=== PATIENT | female | born 1960 | race Caucasian/White ===

== ENCOUNTER 2018-03-08 21:50 | Inpatient (IN) | payer OTHER ==
[~2018-03-08] VITALS: Ht 160 cm; Wt 72.6 kg
[~2018-03-08 21:50] MED LIST: AMLODIPINE BESY10 MG PO; ATENOLOL 25MG T25 MG; KEPPRA 500 MG500 MG; LISINOPRIL10 MG; TEGRETOL XR200 MG PO; ZANTAC 150MG T150 MG
[2018-03-08 21:55] VITALS: BP 153/57
[2018-03-08 22:08] LABS: ABSOLUTE EOSINOPHILS 0.2 thou/uL (0.0-0.7); ABSOLUTE LYMPHOCYTES 2.9 thou/uL (0.8-5.3); ABSOLUTE MONOCYTES 0.6 thou/uL (0.0-1.2); ABSOLUTE NEUTROPHILS 3.7 thou/uL (1.6-8.1); BASOPHILS 0.3 %; EOSINOPHILS 2.1 %; HEMATOCRIT 39.4 % (37.0-47.0); HEMOGLOBIN 13.3 gm/dL (12.0-15.0); LYMPHOCYTES 39.7 %; MCH 31.5 pg (26.0-34.0); MCHC 33.8 g/dL (28.0-37.0); MCV 93.2 fL (80.0-100.0); MONOCYTES 8.2 %; MPV 6.9 fl. (7.2-11.1); NUCLEATED RBCS 0 /100WBC; PLATELET COUNT* 296 thou/uL (150-400); POLYS 49.7 %; RBC 4.23 mil/uL (4.20-5.00); RDW-CV 12.8 % (10.5-14.5); WBC 7.4 thou/uL (4.0-11.0)
[2018-03-08] MEDS ORDERED: CYCLOBENZAPRINE5 MG PO (22:10)
[2018-03-08] MEDS ORDERED: CLONAZEPAM 0.50.5 M1 PO (22:11)
[2018-03-08] MEDS ORDERED: COREG6.25 MG PO (22:12)
[2018-03-08 22:19] LABS: ANION GAP 9 mmol/L (7-16); BUN 10 mg/dL (7-18); CALCIUM 8.8 mg/dL (8.5-10.1); CHLORIDE 86 mmol/L (98-107); CO2 27 mmol/L (21-32); CREATININE 0.5 mg/dL (0.6-1.3); GLUCOSE 116 mg/dL (70-99); POTASSIUM 3.7 mmol/L (3.5-5.1); SODIUM 122 mmol/L (136-145)
[2018-03-08 22:20] LABS: INR 1.1; PROTIME 11.4 Seconds (9.20-11.50)
[2018-03-08 22:29] LABS: ALBUMIN 4.1 g/dL (3.4-5.0); ALKALINE PHOSPHATASE 90 U/L (46-116); MAGNESIUM 1.8 mg/dL (1.8-2.4); NT-PRO BRAIN NAT PEPTIDE 43 pg/mL (<300); SGOT 20 U/L (15-37); SGPT 19 U/L (30-65); TOTAL BILIRUBIN 0.3 mg/dL (<0.1-1.0); TOTAL PROTEIN 7.9 g/dL (6.4-8.2); TROPONIN-I LEVEL <0.06 ng/mL (<0.06)
[2018-03-08 22:53] LABS: URINE BILIRUBIN NEGATIVE (Negative); URINE BLOOD NEGATIVE (Negative); URINE CLARITY CLEAR; URINE COLOR YELLOW; URINE GLUCOSE-RANDOM NEGATIVE (Negative); URINE KETONES NEGATIVE (Negative); URINE LEUKOCYTES-REFLEX 1+ (Negative); URINE NITRITE-REFLEX NEGATIVE (Negative); URINE PROTEIN NEGATIVE (Negative); URINE SPECIFIC GRAVITY 1.015 (1.005-1.030); URINE UROBILINOGEN 0.2 E.U./dl (0.2-1.0)
[2018-03-08 23:03] LABS: AMORPHOUS PHOSPHATES Moderate /LPF (None Seen); BACTERIA-REFLEX >30 Many /HPF (None Seen); CASTS None Seen /LPF (None Seen); MUCUS 4-6 Moderate strn/LPF (None Seen); SQUAMOUS 0-3 Few /LPF (0-3); URINE RBC 3-10 Few /HPF (0-2); URINE WBC-REFLEX >25 Many /HPF (0-5); WBC CLUMPS Few (None Seen)
[2018-03-09] VITALS (10 sets, daily range): BP systolic 119–174; BP diastolic 64–84
--- NOTE | 2018-03-09 04:59 | NUR ---
ASSUMED CARE OF PT AFTER REPORT AT 1930. PT A&OX4. VSS. ADMISSION HISTORY & PHYSICAL ASSESSMENT COMPLETED AND CHARTED. PT ON RA WITH 95% O2 SAT. PT TRACING SR ON TELE. PT UP WITH 1 ASSIST TO RESTROOM. PT COMPLAINED OF HEADACHE WITH PAIN SCALE OF 4/10- DENIES PAIN MEDS FOR NOW. PT PLACED ON SEIZURE PRECAUTION. HEATING PAD PLACED ON PTS BACK PER PTS REQUEST.ORIENTED TO ROOM & CALL LIGHT. CALL LIGHT WITHIN REACH. BED IN LOW POSITION. BED ALARM ON.
[2018-03-09 05:13] LABS: ALBUMIN 3.6 g/dL (3.4-5.0); CALCIUM 8.6 mg/dL (8.5-10.1); CREATININE 0.5 mg/dL (0.6-1.3); POTASSIUM 4.4 mmol/L (3.5-5.1); TOTAL BILIRUBIN 0.3 mg/dL (<0.1-1.0); TOTAL PROTEIN 6.7 g/dL (6.4-8.2)
--- NOTE | 2018-03-09 15:11 | NUR ---
Pt was asleep when CM went to assess, will f/u later
--- NOTE | 2018-03-09 19:53 | NUR ---
PT SLEPT MOST OF THE AFTERNOON, STILL C/O ACHING IN LEGS, PT CONCERNIED ABOUT LOW SODIUM. PT EDUCATED ON THE PLAN AND LABS. PT FALL RISK, BED ALARM ON. PT FORGETS TO USE CALL LIGHT AT TIEMS. VSS, SR ON THE MONITOR. PT PLEASANT AND MORE AWAKE AT DINNER TIME. UPDATED DAUGHTER ON PLAN. REPORT GIVEN TO JOSE MIGUEL MORSE.
[2018-03-10 00:37] VITALS: BP 138/69
[2018-03-10 03:27] VITALS: BP 129/70
[2018-03-10 04:59] LABS: CALCIUM 8.5 mg/dL (8.5-10.1); CREATININE 0.5 mg/dL (0.6-1.3); POTASSIUM 4.3 mmol/L (3.5-5.1)
--- NOTE | 2018-03-10 07:00 | NUR ---
PATIENT HAS SLEPT WELL THROUGHOUT THE NIGHT WITHOUT ANY ISSUES. NO C/O PAIN. MEDICATIONS GIVEN ORDERED. ASSESSMENT CHARTED. VSS ON RA. PATIENT REMAINS ON SEIZURE PRECAUTIONS AND IS UP WITH SBA. TELE MONITORED-NSR. IV IN RIGHT AC-SL. PATIENT INSTRUCTED TO USE CALL LIGHT WHEN NEEDING ASSISTANCE. HOURLY ROUNDS MADE. WILL CONTINUE WITH PLAN OF CARE AND NURSING TO MONITOR.
[2018-03-10 08:00] VITALS: BP 136/72
[2018-03-10] MEDS ORDERED: CEFUROXIME500 MG PO (09:17)
--- NOTE | 2018-03-10 10:45 | NUR ---
ASSUMED PT CARE AT 0730, FULL ASSESMENT DONE CHARTED.PT A/O X4, MORE ALERT TODAY, PT C/O SOME PAIN IN NECK, HEATING PAD IN PLACE. PT C/O CONSTIPATION, STOOL SOFTNER GIVEN. PT ASKING QUESTIONS ABOUT HER HOME MEDS, DISCHARGE ORDERS RECIEVED. WILL EDUCATE PT ON MEDS WITH DISCHARGE. PT STILL A LITTLE WEAK, C/O LEG TIREDNESS. PT EDUCATED TO CALL STAFF FOR HELP AMBULATING. PT NEEDS SOME REEDUCATION. BED ALARM ON, WILL CONTINUE WITH PLAN OF CARE.
[2018-03-10 11:46] VITALS: BP 138/77
[2018-03-10 12:28] VITALS: BP 138/77
--- NOTE | 2018-03-11 09:51 | EKG ---
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 : 1960 Requested By: Rahel Casas Order Number: [id number] MD: Chun Granados Measurements Intervals [place] Rate: 74 P: 59 [place]: 151 QRS: 44 QRSD: 85 T: 60 QT: 427 QTc: 474 Interpretive Statements Sinus rhythm Probable left atrial enlargement No previous ECG available for comparison Electronically Signed On 03-11-2018 9:50:55 [employer]ANT OPERATOR by Chun Granados [email or web address] <ELECTRONICALLY SIGNED> By: Chun Granados MD, [facility] 03/11/18 0950 00 00 Chun Granados MD, [facility] /EPI
== END 2018-03-10 13:44 | disposition home or self-care (01) | DRG 644 ==
LOC: M.ERS 21:50 → M.2W 23:12 → M.TBA-ER 23:12 → M.2W 03-09 00:38
PROVIDERS: Emergency Medicine; Internal Medicine; ADMIT Internal Medicine
DX: E22.2 Syndrome of inappropriate secretion of antidiuretic hormone (principal); N39.0 Urinary tract infection, site not specified; I16.0 Hypertensive urgency; T50.905A Adverse effect of unspecified drugs, medicaments and biological substances, initial encounter; I10 Essential (primary) hypertension; G40.909 Epilepsy, unspecified, not intractable, without status epilepticus; Z28.21 Immunization not carried out because of patient refusal; Z88.6 Allergy status to analgesic agent; Z79.899 Other long term (current) drug therapy

== ENCOUNTER 2018-09-12 12:46 | Inpatient (IN) | payer OTHER ==
[~2018-09-12] VITALS: Ht 162.6 cm; Wt 68.5 kg
--- NOTE | ~2018-09-12 | CON ---
[address] [address] CONSULTATION Name: JAYE BENOIT Room: [address] IN M.R.#: [id number] Admission: 09/12/18 Attend Phys: Dewayne Islas MD Discharge: 09/13/18 Date of : 62 Report #: [id number] THIS REPORT FOR: //name// CC: Dewayne Siddiqui DATE OF SERVICE: 09/13/2018 HISTORY OF PRESENT ILLNESS: This is a 57-year-old female patient who was evaluated by me for some unstructured symptoms. She indicates she had a surgery done at [facility] [place] many years ago. It was a craniotomy for a tumor. She has presented with a seizure and initially, she said she was started on Tegretol and she continued on Tegretol up until now. Subsequently, during the discussion, it would appear this patient has tried multiple other anticonvulsants and subsequently, they have maintained her on anticonvulsant. She indicates she has her own neurologist at [facility] and she follow up with them. She believes that her last MRI was about one year ago. She is pretty adamant that she will not have any further neurological testing. REVIEW OF SYSTEMS: Indicates that she gets headache when her blood pressure goes more than 140 systolic. She believes the present headache is related to her hypertension. She has a meningioma removed about 16 years ago. She does have a history of hypertension. She has hyponatremia, but hyponatremia has been present since 2010 at least according to records in the computer. Her headache is better, but is not resolved. A 14-point review of system was carried out and looks like they are more noncontributory. She still has some headaches, but it is better. She does not have any eye, ENT, cardiac, respiratory, GI, , musculoskeletal, constitutional, dermatological, hematological, psychiatric, throat, allergic symptom associated with present symptomatology. PAST MEDICAL HISTORY: Positive for meningioma and seizures. She has not had a seizure for some time. FAMILY HISTORY: Unremarkable. SOCIAL HISTORY: She indicates she does not work and has not worked since her brain surgery. PHYSICAL EXAMINATION: Indicates she is alert. She is responsive. She can follow simple commands. Her speech, concentration, fund of knowledge and memory is at her baseline. Cranial nerve examination 2-12 looks unremarkable. I was able to have a fairly good look at the patient's fundus and I do not believe this patient has any papilledema. Strength, sensation, reflexes and tone is symmetrical. There is no meningeal sign. There is no carotid bruit. Pulses are nicely palpable. She has no edema, cyanosis or jaundice. Cardiac examination is unremarkable. No respiratory [place] [address] CONSULTATION Name: JAYE BENOIT Room: [address] IN M.R.#: [id number] Admission: 09/12/18 Attend Phys: Dewayne Islas MD Discharge: 09/13/18 Date of : 62 Report #: [id number] pressure is 116/52, respiration is 20, pulse is 73, temperature is 97.5. LABORATORY DATA: White count is 5.7. CT scan indicates prior postsurgical changes, but nothing acute. IMPRESSION: It is possible the headache was related to hypertension as she gives the history, but it will be desirable to exclude the possibility of other etiologies including any intracranial pathology and intracranial sinus thrombosis. However, the patient is pretty adamant that she does not want any further workup like MRI. PLAN: Since the patient is pretty adamant that she does not want any Neurology workup here, I suggested she follow up with a neurologist at [facility]. We will defer further workup and management to them, especially because they have the patient's records. Thank you very much for this referral. By: 1031 03Aly Swanson MD /suze
--- NOTE | ~2018-09-12 | CON ---
[address] [address] CONSULTATION Name: JAYE BENOIT Room: [address] IN M.R.#: [id number] Admission: 09/12/18 Attend Phys: Dewayne Islas MD Discharge: 09/13/18 Date of : 62 Report #: [id number] THIS REPORT FOR: //name// CC: Dewayne Siddiqui DATE OF SERVICE: 09/13/2018 NEPHROLOGY CONSULTATION: CONSULTING PHYSICIAN: Dr. Dewayne Islas. REASON FOR NEPHROLOGY CONSULTATION: Hyponatremia. REASON FOR ADMISSION: Headache. HISTORY OF PRESENT ILLNESS: This is a 57-year-old female with past medical history of anxiety, chronic hyponatremia, history of a meningioma which was removed, history of seizures and reportedly hypertension, who came in with symptoms of cough, headache and congestion, failed treatment with amoxicillin. Hence, she was admitted. She has slightly high blood pressure when she came in, but now blood pressure is better controlled. Her symptoms are better. She was found to have a sodium of 122 when she came in and she was given 250 mL of normal saline and her sodium went up to 131 and it was slowly brought down to 128 this morning. Her sodium normally runs between 131-132. She is also on chronic Tegretol. She does not take any NSAIDs. ALLERGIES: HYDROCODONE, TRAMADOL, DIPHENHYDRAMINE, PROCHLORPERAZINE. REVIEW OF SYSTEMS: As mentioned in history of present illness. HOME MEDICATIONS: Include cyclobenzaprine, carvedilol, carbamazepine, amlodipine, clonazepam. PAST MEDICAL AND SURGICAL HISTORY: Brain tumor removed 15 years ago, reportedly meningioma, seizures, headaches, hypertension, migraines. FAMILY HISTORY: No history of hyponatremia that has been reported. SOCIAL HISTORY: She does not smoke and reportedly no alcohol or illicit drug use. PHYSICAL EXAMINATION: VITAL SIGNS: Blood pressure is 116/52, respiratory rate is 20, pulse rate 70, temperature 36.4, and pulse ox is 96% on room air. GENERAL: She is awake, alert, [place] [address] [address] CONSULTATION Name: JAYE BENOIT Room: [address]#: [id number] Admission: 09/12/18 Attend Phys: Dewayne Islas MD Discharge: 09/13/18 Date of : 62 Report #: [id number] EARS, NOSE AND THROAT: Mucous membranes are moist. HEAD AND EYES: Atraumatic, normocephalic and normal conjunctivae. NECK: There is no JVD. CHEST: Bilateral clear to auscultation, no crackles or wheezing. CARDIOVASCULAR: S1, S2 normal. No murmurs heard. ABDOMEN: Soft, nondistended, nontender. Bowel sounds are present. EXTREMITIES: There is no lower extremity edema, symmetric lower extremities. NEUROLOGICAL: Gross neurological function seems to be intact. PSYCHIATRIC: The patient is little anxious, but otherwise mood seems to be normal. LABORATORY DATA: Hemoglobin is 11.7, WBC 5.7, sodium 128 this morning. Creatinine was normal. Uric acid 1.7 and other labs were reviewed. TSH was normal. IMAGING: Head CT and chest x-ray were reviewed. ASSESSMENT: 1. [id number]-[id number] hyponatremia, likely because of mild intravascular volume depletion, she could have been having some syndrome of inappropriate antidiuretic hormone secretion as well and increased fluid intake at home. She is on chronic Tegretol therapy, which can cause syndrome of inappropriate antidiuretic hormone secretion. Sodium was 122 on presentation, 131-132 at baseline. 2. History of headaches. 3. History of meningioma. 4. History of seizures. PLAN: 1. Sodium improved rapidly initially, was lowered down to a safe range 128 this morning. 2. A 1.5 liter fluid restriction a day. 3. She should get a basic metabolic panel checked in 5 days after discharge or even sodium in 5 days after discharge will be fine. 4. She is okay to be discharged from renal standpoint. She can follow up with the PCP and if desired, she can follow up with us. Thank you for this consultation. Discussed with the patient and discussed with the patient's primary team and Dr. Islas. We will sign off since I do not have any further recommendations. By: 0901 [id number] Pennington MD /nt
[~2018-09-12 12:46] MED LIST changes: +CEFUROXIME500 MG PO; +CLONAZEPAM 0.50.5 M1 PO; +COREG6.25 MG PO; +CYCLOBENZAPRINE5 MG PO
[2018-09-12 12:55] VITALS: BP 185/87
[2018-09-12 13:23] LABS: ABSOLUTE EOSINOPHILS 0.1 thou/uL (0.0-0.7); ABSOLUTE LYMPHOCYTES 2.5 thou/uL (0.8-5.3); ABSOLUTE MONOCYTES 0.5 thou/uL (0.0-1.2); ABSOLUTE NEUTROPHILS 3.6 thou/uL (1.6-8.1); BASOPHILS 0.5 %; EOSINOPHILS 1.9 %; HEMATOCRIT 37.1 % (37.0-47.0); HEMOGLOBIN 12.9 gm/dL (12.0-15.0); LYMPHOCYTES 36.8 %; MCH 32.3 pg (26.0-34.0); MCHC 34.8 g/dL (28.0-37.0); MCV 92.6 fL (80.0-100.0); MONOCYTES 7.9 %; MPV 6.8 fl. (7.2-11.1); NUCLEATED RBCS 0 /100WBC; PLATELET COUNT* 315 thou/uL (150-400); POLYS 52.9 %; RBC 4.01 mil/uL (4.20-5.00); RDW-CV 12.8 % (10.5-14.5); WBC 6.8 thou/uL (4.0-11.0)
[2018-09-12 13:34] LABS: ANION GAP 9 mmol/L (7-16); BUN 6 mg/dL (7-18); CALCIUM 8.6 mg/dL (8.5-10.1); CHLORIDE 87 mmol/L (98-107); CO2 26 mmol/L (21-32); CREATININE 0.4 mg/dL (0.6-1.3); GLUCOSE 98 mg/dL (70-99); POTASSIUM 3.9 mmol/L (3.5-5.1); SODIUM 122 mmol/L (136-145)
--- NOTE | 2018-09-12 13:40 | NUR ---
PT OFFERED TORODOL ORDERED FOR PT HEADACHE AND PT STATES SHE DOES NOT WANT THE MEDICATION BECAUSE "IT CAUSES MY WHOLE BODY TO CRAMP UP." MEDICATION ADDED TO ALLERGY LIST. PT ALSO REFUSED COMPAZINE ORDERED FROM PROVIDER. PROVIDER NOTIFIED OF REFUSAL. AIRCRAFT STRUCTURE MECHANIC CAME TO GET PT TO GO TO CAT SCAN AND PT ALSO REFUSED IMAGING STATING, "IM GOING TO PASS ON THAT TODAY." PROVIDER NOTIFIED.
[2018-09-12 13:47] LABS: ALBUMIN 3.8 g/dL (3.4-5.0); ALKALINE PHOSPHATASE 112 U/L (46-116); SGOT 12 U/L (15-37); SGPT 18 U/L (30-65); TOTAL BILIRUBIN 0.3 mg/dL (<0.1-1.0); TOTAL PROTEIN 7.6 g/dL (6.4-8.2); TROPONIN-I LEVEL <0.06 ng/mL (<0.06)
[2018-09-12 14:16] LABS: URINE BILIRUBIN NEGATIVE (Negative); URINE BLOOD NEGATIVE (Negative); URINE CLARITY CLEAR; URINE COLOR YELLOW; URINE GLUCOSE-RANDOM NEGATIVE (Negative); URINE KETONES TRACE (Negative); URINE LEUKOCYTES-REFLEX NEGATIVE (Negative); URINE NITRITE-REFLEX NEGATIVE (Negative); URINE PROTEIN NEGATIVE (Negative); URINE SPECIFIC GRAVITY <= 1.005 (1.005-1.030); URINE UROBILINOGEN 0.2 E.U./dl (0.2-1.0)
--- NOTE | 2018-09-12 15:36 | NUR ---
PT EXPLAINED REASONING FOR BLADDER SCAN AND PT STATES SHE WILL ACCEPT THE SCAN. PT ASSISTED TO BATHROOM AT THIS TIME.
[2018-09-12 15:57] LABS: AMP/METHAMP Negative (Negative); BARBITURATES Negative (Negative); BENZODIAZEPINES Negative (Negative); COCAINE Negative (Negative); METHADONE Negative (Negative); OPIATES Negative (Negative); PCP Negative (Negative); THC Negative (Negative)
--- NOTE | 2018-09-12 17:28 | NUR ---
DR WALKER ORDERED TORODOL FOR PT. SPOKE WITH POULTRY FARMWORKER ABOUT ORDER AND WAS TOLD THAT DR WALKER WAS AWARE OF THE REACTION THE PATIENT STATES HAPPENED AND ORDERED MEDICATION AFTER KNOWLEDGE. VERIFIED WITH PATIENT THAT PHYSICIAN HAS ORDERED TORODOL AND PT STATES, "YES I WILL TRY IT FOR MY HEADACHE." PHARMACY NOTIFIED OF PT ACCEPTING TO TAKE MEDICATION AND THAT ALL PROVIDERS ARE AWARE OF POTENTIAL SIDE EFFECTS.
--- NOTE | 2018-09-12 17:31 | NUR ---
SPOKE WITH DR WALKER ABOUT PT ALLERGY STATED TO THIS NURSE OF TORODOL. PHYSICIAN STATES THE PATIENT GOT ALLERGIES MIXED UP AND HAS ALLERGY TO TRAMADOL. WILL CHANGE IN ALLERGY RECORD.
--- NOTE | 2018-09-12 17:55 | NUR ---
SPOKE WITH DIRECTOR OF ENTERTAINMENT AND WAS NOTIFIED THAT SODIUM LEVEL INCREASE RESULTED IN HER ORDERS OF CANCELLING THE SODIUM REPLACEMENT, A STAT SODIUM LEVEL REDRAW, AND THAT THE PATIENTS FLUID RESTRICTION NEEDS TO BE CANCELLED WELL.
[2018-09-12 18:13] VITALS: BP 161/77
[2018-09-12 18:27] VITALS: BP 161/77
[2018-09-12 19:24] VITALS: BP 144/61
[2018-09-12 21:40] VITALS: BP 145/68
[2018-09-13 00:03] VITALS: BP 106/56
[2018-09-13 04:00] VITALS: BP 116/52
--- NOTE | 2018-09-13 04:48 | NUR ---
REPORT RECEIVED FROM OFF GOING SHIFT AND CARE ASSUMMED. PT AAOX4 RESP REG AND UNLABORED SKIN W/D NO ACUTE DISTRESS NOTED. MONITOR INTACT WITH ALARMS SET. 24 HR URINE STATRED ORDERED. K PAD TO NECK FOR CHRINIC NECK PAIN. VSS AND NO ACUTE CHANGES DURING SHIFT WILL CONTINUE TO MONITOR
[2018-09-13 05:42] LABS: ABSOLUTE EOSINOPHILS 0.1 thou/uL (0.0-0.7); ABSOLUTE LYMPHOCYTES 2.5 thou/uL (0.8-5.3); ABSOLUTE MONOCYTES 0.6 thou/uL (0.0-1.2); ABSOLUTE NEUTROPHILS 2.4 thou/uL (1.6-8.1); BASOPHILS 0.6 %; EOSINOPHILS 2.6 %; HEMOGLOBIN 11.7 gm/dL (12.0-15.0); MCH 32.1 pg (26.0-34.0); MCHC 34.5 g/dL (28.0-37.0); MCV 93.2 fL (80.0-100.0); MONOCYTES 10.6 %; MPV 6.5 fl. (7.2-11.1); NUCLEATED RBCS 0 /100WBC; PLATELET COUNT* 287 thou/uL (150-400); POLYS 42.2 %; RBC 3.65 mil/uL (4.20-5.00); RDW-CV 12.6 % (10.5-14.5); WBC 5.7 thou/uL (4.0-11.0)
[2018-09-13 05:53] LABS: CALCIUM 8.6 mg/dL (8.5-10.1); CREATININE 0.5 mg/dL (0.6-1.3); POTASSIUM 4.1 mmol/L (3.5-5.1)
[2018-09-13 11:26] VITALS: BP 116/52
[2018-09-13] MEDS ORDERED: FLONASE 0.05%50 MCG NASAL (11:39)
[2018-09-13] MEDS ORDERED: CEFDINIR300 MG PO (11:39)
[2018-09-13 12:34] VITALS: BP 136/66
--- NOTE | 2018-09-13 16:34 | EKG ---
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
== END 2018-09-13 15:30 | disposition home or self-care (01) | DRG 202 ==
LOC: M.ERS 12:46 → M.2W 14:45 → M.TBA-ER 14:45 → M.2W 18:25
PROVIDERS: Internal Medicine; Nurse Practitioner Family; ADMIT Internal Medicine
DX: J20.9 Acute bronchitis, unspecified (principal); E22.2 Syndrome of inappropriate secretion of antidiuretic hormone; G43.909 Migraine, unspecified, not intractable, without status migrainosus; R56.9 Unspecified convulsions; J32.9 Chronic sinusitis, unspecified; E86.9 Volume depletion, unspecified; Z88.5 Allergy status to narcotic agent; Z88.8 Allergy status to other drugs, medicaments and biological substances; Z79.899 Other long term (current) drug therapy